=== PATIENT | male | born 1995 | race Caucasian/White ===

== ENCOUNTER 2018-04-04 20:37 | Emergency (ER) | payer OTHER ==
[2018-04-04 21:13] VITALS: PULSE 81; RESP 20; TEMP 98.6; O2SAT 93
[2018-04-04] MEDS ORDERED: PROPARACAINE HCL 0.5% OPHTHALMIC SOL OP ONE (21:35)
[2018-04-04] MEDS ORDERED: MOXIFLOXACIN HCL OPHTH SOL OP SCH (22:00)
[2018-04-04 22:18] VITALS: BP 130/77
== END 2018-04-04 22:17 | disposition home or self-care (01) | DRG 125 ==
LOC: ED 20:37
DX: H10.13 Acute atopic conjunctivitis, bilateral (principal)
CPT/HCPCS: 99282; A9270-GY